=== PATIENT | female | born 1965 | race American Indian/Alaskan Native ===

== ENCOUNTER 2020-08-25 14:00 | Outpatient (RCR) | payer OTHER, SELFPAY | END 2020-09-09 13:00 | disposition home or self-care (01) | LOC: PT.CARL 14:00 | PROVIDERS: Visit Provider Student in an Organized Health Care Education/Training Program | DX: G25.2 Other specified forms of tremor (principal) | CPT/HCPCS: 97110; 97112; 97163; 97164 ==